=== PATIENT | female | born 1985 | race Caucasian/White ===

== ENCOUNTER 2017-01-26 20:35 | Emergency (ER) | payer BC ==
[2017-01-26 21:09] LABS: Clarity Clear (Clear)
[2017-01-26 21:11] LABS: Bacteria/HPF None Seen HPF (None Seen); Bilirubin Negative (Negative); Blood, Urine Negative (Negative); Glucose, Urine (Dipstick) Negative (Negative); Leukocyte Negative (Negative); Nitrite Negative (Negative); Protein, Urine (Dipstick) Negative (Neg-Trace); RBC/HPF None Seen HPF (0-3); Specific Gravity, Urine 1.003 (1.002-1.036); Squamous Epithelial 0-3 HPF (0-3); Urobilinogen 0.2 mg/dL (0.2-1.0); WBC/HPF None Seen HPF (0-3); pH, Urine 5.5 (5.0-9.0)
[2017-01-26 21:34] LABS: #Eosinphils 0.2 thou/uL (0.0-0.7); #Lymphocytes 2.1 thou/uL (1.20-3.40); #Monocytes 0.7 thou/uL (0.11-0.59); #Neutrophils 5.5 thou/uL (1.40-6.50); %Basophils 0.6 % (0.0-1.0); %Eosinophils 2.2 % (0.0-10.0); %Lymphocytes 25.1 % (21.0-51.0); %Neutrophils 64.2 % (42.0-75.0); Hemoglobin 13.5 g/dL (12.0-16.0); Mean Corpuscular HGB CONC 33.9 g/dL (32.0-36.0); Mean Corpuscular Hemoglobin 31.1 pg (27.0-31.0); Mean Corpuscular Volume 91.8 fl (81.0-99.0); Mean Platelet Volume 8.9 fL (7.4-10.4); Platelet Count 236 thou/uL (130-400); RBC Distribution Width 11.4 % (11.5-14.5); Red Blood Cell (RBC) Count 4.34 mill/uL (4.20-5.40); White Blood Cell (WBC) Count 8.5 thou/uL (4.8-10.8)
[2017-01-26] MEDS ORDERED: Ketorolac Tromethamine 30 MG/ML VIAL ONE (21:34)
[2017-01-26] MEDS ORDERED: Ondansetron HCl/PF 4 MG/2 ML Vial ONE (21:34)
[2017-01-26] MEDS ORDERED: Metoclopramide HCl 10 MG/2 ML VIAL ONE (21:34)
[2017-01-26 21:49] LABS: ALT (SGPT) 16 U/L (8-55); AST (SGOT) 14 U/L (5-34); Alkaline Phosphatase 75 U/L (40-150); Anion Gap 16 mmol/L (10-20); BUN (Urea Nitrogen) 8 mg/dL (7.0-18.7); Bilirubin, Total Less than 0.3 mg/dL (0.2-1.2); Calc. Creatinine Clearance 0 mL/min (70-130); Calcium 9.5 mg/dL (7.8-10.44); Carbon Dioxide 23 mmol/L (22-29); Chloride 103 mmol/L (98-107); Estimated GFR-MDRD 86; Globulin 3.5 g/dL (2.4-3.5); Glucose 93 mg/dL (70-105); Lipase 29 U/L (8-78); Potassium 3.8 mmol/L (3.5-5.1); Protein, Total 7.5 g/dL (6.0-8.3); Sodium 138 mmol/L (136-145)
--- NOTE | 2017-01-26 22:18 | RAD ---
CHEST ONE VIEW PORTABLE 01/26/17 HISTORY: 31-year-old female with abdominal pain and nausea and vomiting for two days. Heart size is normal. The lungs are clear. IMPRESSION: No acute intrathoracic disease. POS: [facility]
[2017-01-26] MEDS ORDERED: HYDROcodone/Acetaminophen 10/325 mg Tablet ONE (22:53)
[2017-01-26] MEDS ORDERED: Ciprofloxacin 500 MG TAB ONE (22:54)
[2017-01-26] MEDS ORDERED: Sulfameth/Trimethoprim DS 800-160mg TAB ONE (22:54)
--- NOTE | 2017-01-26 23:54 | CT ---
CT ABDOMEN AND PELVIS NONCONTRAST RENAL CALCULUS PROTOCOL 01/26/17 CLINICAL HISTORY: Mid abdominal pain. Reference made to 02/15/08 exam. FINDINGS: There is no evidence of urolithiasis or obstructive uropathy. Limited evaluation of the solid abdomi nal organs, bowel, lymph nodes, vasculature on the basis of a noncontrast technique. There is mild i nflammatory fat stranding of the lower abdomen to the right of midline. There encompasses unopacifie d small bowel. This may relate to an enteritis, although is not definitively characterized. No drai nable fluid collection or free air. Imaged lung bases are clear. There is no evidence of acute osseo us abnormality. There are dystrophic calcifications of the left pelvis with evidence to suggest prio r hysterectomy. IMPRESSION: 1. No urolithiasis or obstructive uropathy. 2. Fat stranding of the right lower quadrant which may relate to an enteritis. Suggestion of a normal caliber unopacified appendix. Recommend clinical correlation. If necessary, this could be fur ther assessed with followup contrast enhanced exam utilizing IV and enteric contrast if there is con cern for acute bowel pathology. POS: [id number]
== END 2017-01-26 23:10 | disposition home or self-care (01) ==
LOC: MADERS 20:35
DX: K52.9 Noninfective gastroenteritis and colitis, unspecified (principal); E06.3 Autoimmune thyroiditis; Z79.899 Other long term (current) drug therapy
CPT/HCPCS: 71010; 74176; 80053; 81001; 82150; 83605; 83690; 85025; 87086; 96374; 96375; J1885; J2405; J2765